=== PATIENT | male | born 1990 ===

== ENCOUNTER 2018-06-06 21:02 | Emergency (ER) | payer SELFPAY ==
[2018-06-06 21:04] VITALS: O2SAT 97
--- NOTE | 2018-06-06 21:11 | ED PDOC ---
HPI: Psych/Substance Abuse Time Seen by Provider: 06/06/18 21:06 Chief Complaint (Nursing): Alcohol Ingestion Chief Complaint (Provider): etoh History Per: Patient, EMS Additional Complaint(s): 28-year-old male presents to emergency room via ambulance for evaluation of alcohol intoxication. [place]. Patient missed a drinking but denies drug use. He offers no acute complaints at this time. PMD: none Past Medical History Reviewed: Historical Data, Nursing Documentation, Vital Signs Vital Signs: Last Vital Signs Temp 98.7 F 06/06/18 21:03 Pulse 83 06/06/18 21:03 Resp 18 06/06/18 21:03 BP 138/87 06/06/18 21:03 Pulse Ox 97 06/06/18 21:03 - Medical History PMH: No Chronic Diseases - Surgical History Surgical History: No Surg Hx - Family History Family History: States: No Known Family Hx - Living Arrangements Living Arrangements: With Family - Social History Current smoker - smoking cessation education provided: No Alcohol: Social Drugs: Denies - Allergies Allergies/Adverse Reactions: Allergies Allergy/AdvReac Type Severity Reaction Status Date / Time No Known Allergies Allergy Verified 06/06/18 21:02 Review of Systems ROS Statement: Except As Marked, All Systems Reviewed And Found Negative Psych: Positive for: Other (etoh) Physical Exam - Reviewed Nursing Documentation Reviewed: Yes Vital Signs Reviewed: Yes - Physical Exam Appears: Positive for: Well Skin: Positive for: Normal Color. Negative for: Rash Eye Exam: Positive for: Normal appearance Cardiovascular/Chest: Positive for: Regular Rate, Rhythm Respiratory: Positive for: Normal Breath Sounds Neurologic/Psych: Positive for: Alert, Oriented - ECG O2 Sat by Pulse Oximetry: 97 Pulse Ox Interpretation: Normal Medical Decision Making Medical Decision Makin-year-old intoxicated male Plan: Glucose POC BAL 10:20 pm: BAL is 204, Glucose is 114 Patient was observed in ED for several hours, his condition remained stable throughout his stay. At 1:15 am, patient is awake, alert, has steady gait, stable for discharge. Disposition - Clinical Impression Clinical Impression: Alcohol intoxication - Patient ED Disposition Is Patient to be Admitted: No Counseled Patient/Family Regarding: Need For Followup - Disposition Referrals: [facility] [Outside] Disposition: Routine/Home Disposition Time: 22:14 Condition: STABLE Instructions: Alcohol Abuse and Alcoholism (DC) Forms: [facility] (Azeri) Print Language: HAITIAN
[2018-06-07 01:53] VITALS: BP 134/75; PULSE 72; RESP 16; TEMP 98.3
== END 2018-06-07 01:54 | disposition home or self-care (01) ==
LOC: H.ER 21:02
DX: F10.129 Alcohol abuse with intoxication, unspecified (principal)
CPT/HCPCS: 99283; G0480